=== PATIENT | male | born 2000 | race Caucasian/White ===

== ENCOUNTER 2024-08-25 01:13 | Emergency (ER) | payer SELFPAY ==
[2024-08-25 01:17] VITALS: BP 103/58; PULSE 72; RESP 18; TEMP 36.6; O2SAT 100; BMI 24.6
--- NOTE | 2024-08-25 02:09 | ED_ITS ---
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 He denies any issues no drainage, no redness, no swelling - he denies triage complaint of infection he thinks it looks good MD complaint: animal bite Onset (ago): day(s) (2) Animal: dog Description of animal: household pet and immunizations UTD Mechanism: bite Location: buttocks Pain description: dull Context: unprovoked Associated symptoms: none Treatments prior to arrival: wound dressing(s) Related Data Previous Rx's ?Medication ?Instructions ?Recorded amoxicillin 875 mg-potassium 1 tab PO BID #14 tabs 08/25/24 clavulanate 125 mg tablet Allergies Allergy/AdvReac Type Severity Reaction Status Date / Time No Known Allergies Allergy Verified 08/25/24 01:17 Review of Systems Review of Systems: Constitutional : No Fever, No Chills, Cardiovascular : No Chest Pain, No SOB Respiratory : No Dyspnea Gastrointestinal : No abdominal pain Musculoskeletal : No Joint Swelling Skin : No rash, positive skin puncture Neuro : No Weakness, No Numbness all other systems reviewed and are negative [facility] Past Medical History Attestation statement: The following information was validated with the patient. Medical History No pertinent past medical history Social History Social History (Updated 08/25/24 @ 02:13 by Blessing Luong DO) Patient Tobacco Use Status: Never used Tobacco Physical Exam ED Vital Signs: Vital Signs - 24 hr 08/25/24 01:17 Temperature 98 F Pulse Rate 72 Respiratory Rate 18 Blood Pressure 103/58 L Pulse Oximetry 100 Oxygen Delivery Method Room Air BMI result Body Mass Index 24.6 Appearance: Alert. Oriented X3. No acute distress. Eyes: Pupils equal, round and reactive to light. ENT: Pharynx normal. Neck: Normal inspection. Neck supple. CVS: Normal heart rate and rhythm. Pulses normal. Respiratory: No respiratory distress. Breath sounds normal. Abdomen: Soft and nontender. Buttock: R buttock linear abrasion and puncture wound R buttock it is closed there is no erythema and no drainage Skin: Skin warm and dry. Normal skin color. Normal skin turgor. Extremities: No lower extremity edema. No calf ttp Neuro: Oriented X 3. No motor deficit. No sensory deficit. Medical Decision Making Medical Decision Making [facility] Narrative: 24 yo male with no sig PMH here after dog bite at this time the dog is UTD on rabies, there is no signs of infection I am going to order tdap and augmentin Differential Diagnosis Differential Diagnoses: The differential diagnosis associated with the presentation includes dog bite Independent Historian Clinical information obtained from an independent historian. History obtained from or confirmed by: Spouse Prescription Management I considered prescription management with: Antibiotic and Other Discharge Plan Discharge Clinical Impression: Dog bite Patient Disposition: Home, Self-Care Instructions: Animal Bite (ED) Additional Instructions: return for redness, fevers, yellow drainage, swelling or any other concerns. On amoxicillin-clavulanate, softer bowel movements are to be expected. Call your provider if you move your bowels more than 4 times a day, your bowel movements are almost all liquid, or you get a rash.? Prescriptions: New amoxicillin-pot clavulanate 875-125 mg tablet 1 tab PO BID Qty: 14 0RF
[2024-08-25] MEDS: Diphth,Pertus(ACell),Tet Adult 0.5 ML SYRINGE IM (02:27)
[2024-08-25] MEDS: Amoxicillin/Potassium Clav 875 MG TABLET PO (02:29)
[2024-08-25 02:33] VITALS: BP 114/66; PULSE 76; RESP 16; TEMP 37; O2SAT 98
== END 2024-08-25 02:56 | disposition home or self-care (01) ==
PROVIDERS: Emergency Provider Emergency Medicine
DX: S31.815A Open bite of right buttock, initial encounter (principal); W54.0XXA Bitten by dog, initial encounter; Y93.9 Activity, unspecified; Y92.89 Other specified places as the place of occurrence of the external cause; Y99.8 Other external cause status; Z23 Encounter for immunization
CPT/HCPCS: 90471; 90715; 99282; 99284

== ENCOUNTER 2025-08-05 01:46 | Emergency (ER) | payer SELFPAY ==
--- NOTE | ~2025-08-05 | XR_ITS ---
CLINICAL HISTORY: pain LUMBAR SPINE X-RAYS, FRONTAL AND LATERAL VIEWS COMPARISON: None provided. FINDINGS: Frontal and lateral views of the lumbar spine were obtained. No evidence of an acute fracture or dislocation involving the lumbar spine. Minimal chronic anterior loss of height is noted involving the L4 vertebral body level. No retropulsion. No pars defects. No significant disc space narrowing. Sacroiliac joints are unremarkable. IMPRESSION: 1. No acute disease. This document has been electronically signed by: Matias Salcedo M.D. on 08/05/2025 03:46:28
[2025-08-05 01:48] VITALS: BP 104/51; PULSE 88; RESP 20; TEMP 36.8; O2SAT 99; BMI 25.1
--- OUTSIDE RECORDS SUMMARY | 2025-08-05 03:08 | XMS_ITS | Clinical Summary ---
Author Organization 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 Name Role Phone Unavailable Primary Care Provider Unavailabl e Social History Tobacco Use Types Packs/Day Years Used Date Smoking Tobacco: Never Assessed Sex and Gender Information Value Date Recorded Sex Assigned at Not on file Legal Sex Male 1:39 PM EDT Gender Identity Not on file Sexual Orientation Not on file Plan of Treatment Health Maintenance Due Date Last Done Comments HPV Vaccines (1 - Male 3-dos e series) 2017 Meningococcal B Vaccine (1 o f 2 - Standard) 2018 DTaP,Tdap,and Td Vaccines (1 - Tdap) 2021 Hepatitis B Vaccines (1 of 3 - 19+ 3-dose series) 2021 HIV Screening 04/22/2024 Hepatitis C Screening 04/22/2024 Social Influencers of Health Screening 04/22/2024 Depression Screening 09/30/2024 COVID-19 Vaccine (1 - 2023-2 5 season) 2025 Influenza Vaccine (#1) 2025 RSV Immunization Adult Patie nts (1 - 1-dose 75+ series) 2077 HIB Vaccines Aged Out No longer eligi ble based on patient's age to complete this topic Hepatitis A Vaccines Aged Out No long er eligible based on patient's age to complete this topic IPV Vaccines Aged Out No longer eligi ble based on patient's age to complete this topic MMR Vaccines Aged Out No longer eligi ble based on patient's age to complete this topic Meningococcal ACWY Vaccine Aged Out N o longer eligible based on patient's age to complete this topic Pneumococcal Vaccine: Pediat rics (0 to 5 Years) and At-Risk Patients (6 to 49 Years) Aged Out No longer eligible b ased on patient's age to complete this topic RSV Immunization Patients Un kathleen 20 months Aged Out No longer eligible b ased on patient's age to complete this topic Varicella Vaccines Aged Out No longer eligible based on patient's age to complete this topic
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
[2025-08-05 05:39] VITALS: RESP 16
[2025-08-05 05:51] VITALS: BP 104/51; PULSE 60; RESP 16; TEMP -17.7; TEMP 0; O2SAT 96
== END 2025-08-05 05:56 | disposition home or self-care (01) ==
PROVIDERS: Emergency Provider Emergency Medicine
DX: M54.16 Radiculopathy, lumbar region (principal); M54.50 Low back pain, unspecified
CPT/HCPCS: 72100; 96372; 99283; 99284; J1171; J1885

== ENCOUNTER → 2025-08-05 02:15 | Outpatient (BNV) | payer SELFPAY | PROVIDERS: Visit Provider Radiology Diagnostic Radiology | DX: M54.9 Dorsalgia, unspecified (principal) | CPT/HCPCS: 72100 ==